=== PATIENT | female | born 1950 | race Two or more races ===

== ENCOUNTER → 2020-12-11 | Outpatient (CLI) | payer BC, MEDICAID ==
[~2020-12-11] MED LIST: ACET325T14 PO; ASCO100018 PO; ATOR20TA37 PO; CETI10CA PO; CHOL10003 PO; CYAN25009 PO; FAMO-79 PO; FLUO20CA23 PO; GABA-826 PO; GLUC1TAB27 PO; HYDR-826 PO; IBUP-1222 PO; LISI-170 PO; LORA-247 PO; MENT118G TP; METF500T17 PO; POTA99TA2 PO; RANI150T4 PO; TRAZ50TA66 PO
[2020-12-11 15:36] LABS: BASOPHILS % (AUTO) 0 % (0-1); EOSINOPHILS % (AUTO) 6 % (1-7); LYMPHOCYTES % (AUTO) 24 % (22-44); MEAN CORPUSCULAR HGB CONC 34.6 g/dL (32.4-35.8); MEAN PLATELET VOLUME 7.2 fL (7.4-10.4); MONOCYTES % (AUTO) 8 % (2-9); NEUTROPHILS % (AUTO) 63 % (42-75); PLATELET COUNT 344 x10^3/uL (130-400); RED CELL DISTRIBUTION WIDTH 12.8 % (9.6-15.2)
[2020-12-11 15:46] LABS: ALANINE AMINOTRANSFERASE 33 U/L (12-78); ALBUMIN 3.9 g/dL (3.4-5.0); ANION GAP 9 mmol/L (5-15); CALCIUM 9.5 mg/dL (8.5-10.1); CHLORIDE 103 mmol/L (98-107); CREATININE 0.53 mg/dL (0.55-1.02); PROTHROMBIN TIME 10.7 Seconds (9.6-11.5)
[2020-12-11 15:48] LABS: ALKALINE PHOSPHATASE 64 U/L (45-117); BILIRUBIN,TOTAL 0.2 mg/dL (0.2-1.0); TOTAL PROTEIN 7.3 g/dL (6.4-8.2)
== END | disposition home or self-care (01) ==
LOC: STAR 13:48
PROVIDERS: ATTEND Orthopaedic Surgery
DX: Z01.818 Encounter for other preprocedural examination (principal); M17.11 Unilateral primary osteoarthritis, right knee; M25.561 Pain in right knee; Z20.822 Contact with and (suspected) exposure to COVID-19
CPT/HCPCS: 80053; 83036; 85025; 85610; 85730; 87081; 87806; 93005; U0003; U0005; G0475

== ENCOUNTER 2020-12-17 05:44 | Day surgery (SDC) | payer BC, MEDICAID ==
[~2020-12-17] VITALS: Ht 154.9 cm; Wt 82.1 kg
[2020-12-17] MEDS ORDERED: KETOROLAC 60 MG/2 ML ONE (06:18)
[2020-12-17] MEDS ORDERED: ROPIvacaine/PF 0.2%, 20 ML ONE (06:18)
[2020-12-17] MEDS ORDERED: TRANEXAMIC ACID 100 MG/ML, 10ML ONE (06:18)
[2020-12-17] MEDS ORDERED: VANCOMYCIN 1,000 MG ONE (06:18)
[2020-12-17] MEDS ORDERED: SODIUM CHLORIDE 0.9% 50 ML ONE (06:19)
[2020-12-17] MEDS ORDERED: EPINEPHRINE 1 MG/ML, 1ML ONE (06:19)
[2020-12-17] MEDS ORDERED: ACETAMINOPHEN 500 MG TABLET PO ONE (06:30)
[2020-12-17] MEDS ORDERED: CHLORHEXIDINE 15 ML UDC PO ONE (06:30)
[2020-12-17] MEDS ORDERED: LACTATED RINGERS 1,000 ML IV SCH (06:30)
[2020-12-17] MEDS ORDERED: MIDAZOLAM 1 MG/ML, 2ML ONE (06:40)
[2020-12-17] MEDS ORDERED: FENTANYL PF 250 MCG/5ML ONE (06:41)
[2020-12-17 06:43] VITALS: BP 148/81
[2020-12-17] MEDS ORDERED: POTASSIUM CHLORIDE 20 MEQ in D5%-0.45% NACL 1,000 ML IV SCH (07:30)
[2020-12-17] MEDS ORDERED: ACETAMINOPHEN 650 MG/20.3 ML UDC PO PRN (07:30)
[2020-12-17] MEDS ORDERED: SENNA/DOCUSATE TABLET PO PRN (07:30)
[2020-12-17] MEDS ORDERED: OXYcodone IR 5MG TABLET PO PRN (07:30)
[2020-12-17] MEDS ORDERED: ONDANSETRON 2MG/ML, 2ML IVPush PRN (07:30)
[2020-12-17] MEDS ORDERED: DIPHENHYDRAMINE 25 MG CAPSULE PO PRN (07:30)
[2020-12-17] MEDS ORDERED: DIPHENHYDRAMINE 50 MG/ML, 1ML IVPush PRN (07:30)
[2020-12-17] MEDS ORDERED: POLYETHYLENE GLYCOL 17 GM PACKET PO PRN (07:30)
[2020-12-17] MEDS ORDERED: HYDROmorphone 1 MG/ML, 1ML INJ IVPush PRN ×2 (07:30→08:00)
[2020-12-17] MEDS ORDERED: METOCLOPRAMIDE 5 MG/ML, 2ML IVPush PRN (07:30)
[2020-12-17] MEDS ORDERED: KETOROLAC 30 MG/1 ML IV SCH (07:30)
[2020-12-17] MEDS ORDERED: DEXAMETHASONE 4 MG/ML, 1ML IVPush ONE (07:30)
[2020-12-17] MEDS ORDERED: ALUMINUM/MAG/SIMETHICONE 30 ML UDC PO PRN (07:30)
[2020-12-17] MEDS ORDERED: CEFAZOLIN PMX 1GM/50ML 50 ML IVPB SCH (07:30)
[2020-12-17] MEDS ORDERED: PSYLLIUM PACKET PO PRN (07:30)
[2020-12-17] MEDS ORDERED: ONDANSETRON 4 MG TABLET PO PRN (07:30)
[2020-12-17] MEDS ORDERED: DEXAMETHASONE 4 MG/ML, 1ML ONE (07:33)
[2020-12-17] MEDS ORDERED: LIDOCAINE-MPF 2% ,5ML ONE (07:33)
[2020-12-17] MEDS ORDERED: BUPIVACAINE/PF 0.5% ONE (07:33)
[2020-12-17] MEDS ORDERED: CEFAZOLIN 1,000 MG ONE (07:33)
[2020-12-17] MEDS ORDERED: PROPOFOL 10 MG/ML, 20ML ONE (07:33)
[2020-12-17] MEDS ORDERED: ONDANSETRON 2MG/ML, 2ML ONE (07:33)
[2020-12-17] MEDS ORDERED: ALBUTEROL SULFATE 2.5 MG/3 ML NPPB PRN (08:00)
[2020-12-17] MEDS ORDERED: ACETAMINOPHEN 325 MG TABLET PO PRN (08:00)
[2020-12-17] MEDS ORDERED: MEPERIDINE/PF 25MG/0.5ML IVPush PRN (08:00)
[2020-12-17] MEDS ORDERED: FENTANYL PF 100 MCG/2ML IV PRN (08:00)
[2020-12-17] MEDS ORDERED: LABETALOL 5MG/ML, 20ML IV PRN (08:00)
[2020-12-17] MEDS ORDERED: PROMETHAZINE 25 MG/ML, 1ML IVPush PRN (08:00)
[2020-12-17] MEDS ORDERED: MIDAZOLAM 1 MG/ML, 2ML IV PRN (08:00)
[2020-12-17] MEDS ORDERED: TRANEXAMIC ACID 1,000 MG in SODIUM CHLORIDE 0.9% 100 ML IVPB ONE (08:25)
[2020-12-17] MEDS ORDERED: ACETAMINOPHEN 650 MG/20.3 ML UDC ONE (08:30)
[2020-12-17] MEDS ORDERED: OXYcodone 5 MG/5 ML ORAL.SOL UDC ONE (08:31)
[2020-12-17] MEDS: OXYcodone 5 MG/5 ML ORAL.SOL UDC PO PRN ×2 (08:35→10:22)
[2020-12-17] MEDS ORDERED: MEPERIDINE/PF 25MG/ML,1ML ONE (08:55)
[2020-12-17] MEDS ORDERED: TAMSULOSIN 0.4 MG CAP.ER.24H PO SCH (09:00)
[2020-12-17] MEDS ORDERED: ASPIRIN 81 MG TABLET EC PO SCH (09:00)
[2020-12-17] MEDS ORDERED: DOCUSATE 100 MG CAPSULE PO SCH (09:00)
[2020-12-18] MEDS ORDERED: RIVAROXABAN 10 MG TABLET PO SCH (06:00)
== END 2020-12-17 14:50 | disposition home or self-care (01) ==
LOC: OUT 05:44 → ORIP 07:01 → UNDOADMOB 07:01
PROVIDERS: ATTEND Orthopaedic Surgery
DX: M17.0 Bilateral primary osteoarthritis of knee (principal); M25.761 Osteophyte, right knee; M25.762 Osteophyte, left knee; M21.162 Varus deformity, not elsewhere classified, left knee; M21.161 Varus deformity, not elsewhere classified, right knee; E11.9 Type 2 diabetes mellitus without complications; I10 Essential (primary) hypertension; K21.9 Gastro-esophageal reflux disease without esophagitis; E66.9 Obesity, unspecified; E78.5 Hyperlipidemia, unspecified; F17.210 Nicotine dependence, cigarettes, uncomplicated; Z79.1 Long term (current) use of non-steroidal anti-inflammatories (NSAID); Z79.82 Long term (current) use of aspirin; Z79.891 Long term (current) use of opiate analgesic; Z79.899 Other long term (current) drug therapy; Z88.0 Allergy status to penicillin; Z88.8 Allergy status to other drugs, medicaments and biological substances; Z98.890 Other specified postprocedural states
CPT/HCPCS: 27447; 64447; 73560; 82962; 97163; C1776; J0171; J0690; J1100; J1885; J2175; J2250; J2405; J2704; J2795; J3010; J7120; J3370